=== PATIENT | female | born 1945 | race Caucasian/White ===

== ENCOUNTER 2016-09-21 10:05 | Inpatient (IN) | payer OTHER, MEDICARE ==
[~2016-09-21] VITALS: Ht 162.6 cm; Wt 62.4 kg
[2016-09-21] MEDS ORDERED: LOSA1TAB PO (10:25)
[2016-09-21] MEDS ORDERED: ASPI-461 PO (10:25)
[2016-09-21] MEDS ORDERED: LUTE15CA PO (10:25)
[2016-09-21] MEDS ORDERED: ALPR1TAB3 PO (10:25)
[2016-09-21] MEDS ORDERED: AMLO-114 PO (10:25)
[2016-09-21] MEDS ORDERED: WHEACHW PO (10:25)
[2016-09-21] MEDS ORDERED: SPRIN/30 INH (10:25)
[2016-09-21] MEDS ORDERED: MECL1TAB42 PO (10:25)
[2016-09-21] MEDS ORDERED: ALBUTEROL 0.083% NEBU SOLN 3 ML VIAL INH STA ×2 (10:26→12:44)
[2016-09-21] MEDS ORDERED: LEVAQUIN 750MG / 150ML D5W IV STA (10:27)
[2016-09-21] MEDS ORDERED: METHYLPREDNISOLONE 125 MG VIAL IV STA (10:27)
[2016-09-21 11:00] LABS: HEMATOCRIT 41.8 % (37-47); MEAN CELL VOLUME 86.4 fL (80-100); MEAN CORPUSCULAR HEMOGLOBIN 28.7 pg (25-34); MEAN CORPUSCULAR HGB CONC 33.3 g/dl (32-36); MEAN PLATELET VOLUME 10.6 fL (7.4-10.4); PLATELET COUNT 327 K/uL (130-400); RED BLOOD COUNT 4.84 M/uL (4.2-5.4); WHITE BLOOD COUNT 7.17 K/uL (4.8-10.8)
--- NOTE | 2016-09-21 11:20 | DIAGNOSTIC IMAGING REPORT ---
CHEST ONE VIEW PORTABLE HISTORY: Cough. Short of breath. COMPARISON: None. FINDINGS: The heart is normal in size. Linear density at the lung bases favor scarring or subsegmental atelectasis. No focal lung consolidations to suggest pneumonia. No evidence for pulmonary edema. Mild bibasilar interstitial thickening is likely chronic. There is a vascular stent superior to the aortic arch. There is suture material and surgical clips within the right upper lobe. There is associated volume loss within the right hemithorax with mild elevation of the right hemidiaphragm. This suggests postoperative change/prior right lobe resection. No pleural effusions. No pneumothorax. IMPRESSION: No acute process within the chest. Postoperative and chronic changes as described above. Electronically signed by: Christiano Lee M.D. 09/21/2016 11:18 AM
[2016-09-21 11:29] LABS: BUN/CREATININE RATIO 13.2 (10-20); CALCIUM 8.9 mg/dl (8.5-10.1); CREATININE 1.1 mg/dl (0.60-1.20); POTASSIUM 3.7 mmol/L (3.5-5.1)
[2016-09-21 11:32] LABS: ALB/GLOB RATIO 0.9 (0.9-2)
[2016-09-21 11:33] LABS: BASO % 0.1 %; BASO ABS # 0.01 K/uL (0-0.2); COMPLETE YES; EOS % 0.1 %; IG% 0.3 %; LYMPH % 25.2 %; LYMPH ABS # 1.81 K/uL (1.2-3.4); MONO % 12.1 %; NEUT % 62.2 %
[2016-09-21] MEDS ORDERED: OSELTAMIVIR PHOSPHATE 75 MG CAP PO SCH (12:45)
--- NOTE | 2016-09-21 13:40 | History and Physical ---
History & Physical Date & Time of Service: Sep 21, 2016 at 13:16 Chief Complaint: Cough, Runny Nose, Headache, Shortness Of Breath Primary Care Physician: No Doctor, Assigned Social History Smoking Status: Never Smoker Allergies Coded Allergies: Amoxicillin (Unverified Allergy, Unknown, hives , 09/21/16) CI Pigment Blue 63 (Unverified Allergy, Unknown, pain in right side of stomach , 09/21/16) Ciprofloxacin (Unverified Allergy, Unknown, vertigo, 09/21/16) Famotidine (Unverified Allergy, Unknown, pain in right side of stomach , 09/21/16) Ibuprofen (Unverified Allergy, Unknown, pain in right side of stomach , ) Methylprednisolone (Unverified Allergy, Unknown, increase in cholestoral, 09/21/16) Mometasone (Unverified Allergy, Unknown, eye trouble , 09/21/16) Nitrofurantoin (Unverified Allergy, Unknown, vertigo, 09/21/16) Penicillins (Unverified Allergy, Unknown, hives , 09/21/16) Meloxicam (Unverified Adverse Reaction, Unknown, dizzy , 09/21/16) Tramadol (Unverified Adverse Reaction, Unknown, dizzy, 09/21/16) Home Medications Scheduled Alprazolam (Xanax), 2 MG PO DAILY Amlodipine (Norvasc), 10 MG PO DAILY Aspirin (Aspirin), 81 MG PO DAILY Losartan Potassium (Cozaar), 25 MG PO DAILY Lutein-Zeaxanthin (Lutein), 45 MG PO DAILY Tiotropium [place] (Spiriva Handihaler), 1 CAP INH DAILY Wheat Dextrin (Benefiber), 1 TAB PO DAILY Scheduled PRN Meclizine Hcl (Meclizine Hcl), Unknown Dose PO UD PRN for prn Physical Exam Vital Signs Date Time Temp Pulse Resp B/P Pulse Ox O2 Delivery O2 Flow Rate FiO2 09/21/16 12:43 86 Room Air 09/21/16 12:28 65 18 143/51 93 Room Air 09/21/16 11:03 66 09/21/16 10:34 94 Nasal Cannula 2.0 09/21/16 10:14 94 Nasal Cannula 2.0 09/21/16 10:08 36.8 83 20 164/64 88 Room Air Diagnostics Laboratory Results Results Past 24 Hours Test 09/21/16 10:35 09/21/16 10:47 Range/Units Influenza Type A Antigen Neg for Influ A NEG Influenza Type B Antigen Neg for Influ B NEG White Blood Count 7.17 4.8-10.8 K/uL Red Blood Count 4.84 4.2-5.4 M/uL Hemoglobin 13.9 12.0-16.0 g/dL Hematocrit 41.8 37-47 % Mean Corpuscular Volume 86.4 80-100 fL Mean Corpuscular Hemoglobin 28.7 25-34 pg Mean Corpuscular Hemoglobin Concent 33.3 32-36 g/dl Platelet Count 327 130-400 K/uL Mean Platelet Volume 10.6 7.4-10.4 fL Neutrophils (%) (Auto) 62.2 % Lymphocytes (%) (Auto) 25.2 % Monocytes (%) (Auto) 12.1 % Eosinophils (%) (Auto) 0.1 % Basophils (%) (Auto) 0.1 % Neutrophils # (Auto) 4.45 1.4-6.5 K/uL Lymphocytes # (Auto) 1.81 1.2-3.4 K/uL Monocytes # (Auto) 0.87 0.11-0.59 K/uL Eosinophils # (Auto) 0.01 0-0.5 K/uL Basophils # (Auto) 0.01 0-0.2 K/uL RDW Standard Deviation 47.0 36.4-46.3 fL RDW Coefficient of Variation 14.8 11.5-14.5 % Immature Granulocyte % (Auto) 0.3 % Immature Granulocyte # (Auto) 0.02 0.00-0.02 K/uL D-Dimer 350 0-500 ug/L FEU Sodium Level 142 136-145 mmol/L Potassium Level 3.7 3.5-5.1 mmol/L Chloride Level 107 98-107 mmol/L Carbon Dioxide Level 24 21-32 mmol/L Anion Gap 11.0 3-11 mmol/L Blood Urea Nitrogen 14 7-18 mg/dl Creatinine 1.10 0.60-1.20 mg/dl Est Creatinine Clear Calc Drug Dose 39.4 ml/min Estimated GFR () 57.7 Estimated GFR (Non- 49.8 BUN/Creatinine Ratio 13.2 10-20 Random Glucose 104 70-99 mg/dl Calcium Level 8.9 8.5-10.1 mg/dl Total Bilirubin 0.8 0.2-1 mg/dl Aspartate Amino Transf (AST/SGOT) 30 15-37 U/L Alanine Aminotransferase (ALT/SGPT) 34 12-78 U/L Alkaline Phosphatase 121 45-117 U/L Total Protein 8.1 6.4-8.2 gm/dl Albumin 3.8 3.4-5.0 gm/dl Globulin 4.3 2.5-4.0 gm/dl Albumin/Globulin Ratio 0.9 0.9-2 Impression Assessment and Plan admit #[id number]
[2016-09-21] MEDS ORDERED: ALUMINUM/MAGNESIUM/SIMETH (MAALOX MAX) 30 ML UDC PO PRN (13:45)
[2016-09-21] MEDS ORDERED: MECLIZINE HCL 25 MG TAB PO PRN (13:45)
[2016-09-21] MEDS ORDERED: POLYETHYLENE (MIRALAX) 17 GM PACK PO PRN (13:45)
[2016-09-21] MEDS ORDERED: ONDANSETRON INJ 2 MG/ML 2 ML VIAL IV PRN (13:45)
[2016-09-21] MEDS ORDERED: MAGNESIUM HYDROXIDE SUSP 30 ML UDC PO PRN (13:45)
[2016-09-21] MEDS ORDERED: ACETAMINOPHEN 325 MG TAB PO PRN (13:45)
[2016-09-21 15:37] VITALS: BP 154/62; PULSE 75; TEMP 37.4; O2SAT 94; Ht 162.6 cm; Wt 62.4 kg
[2016-09-21 15:37] LABS: URINE APPEARANCE CLEAR (CLEAR); URINE BILIRUBIN NEG (NEG); URINE COLOR YELLOW; URINE NITRITE NEG (NEG); URINE SPECIFIC GRAVITY 1.001 (1.000-1.030); UROBILINOGEN NEG (NEG)
[2016-09-21 15:40] LABS: MANUAL MICROSCOPIC REQUIRED? NO; REVIEW REQ? NO
[2016-09-21] MEDS: ALBUT/IPRATROP 3MG/0.5MG NEB 3 ML VIAL INH SCH ×2 (16:00→20:22)
--- NOTE | 2016-09-21 16:29 | HISTORY & PHYSICAL EXAMINATION ---
DATE OF ADMISSION: 09/21/2016 ADMISSION HISTORY AND PHYSICAL CHIEF COMPLAINT: Cough and hypoxia. HISTORY OF PRESENT ILLNESS: The patient is a very pleasant 71-year-old female who is up here visiting family. She and her normally lives in [place], they were actually going to leave couple of days ago, but he started getting sick with something that appeared to be flu-like, turned out he had flu and then about 2 to maybe 3 days ago she started with cough and postnasal drip and just generally feeling run down, malaise, surprisingly not a lot of shortness of breath, although she did feel some shortness of breath and she did not have any fevers, but came here to the ER for further evaluation. She and her were evaluated together, he was flu B be positive and needed to be admitted. Although her flu swab was negative, has not been sick quite as long, but was found to be fairly hypoxic down as low as 86% on room air and because of this, we were asked to evaluate her for admission as well. REVIEW OF SYSTEMS: Negative for any GI symptoms. She has no nausea, vomiting, abdominal pain. She has no other new problems besides the above. She notes that at baseline, her pulse ox runs about 96-98% on room air and review of systems is otherwise negative, except for as above. PAST MEDICAL HISTORY: Includes COPD, hypertension, coronary artery disease and lung cancer status post resection. MEDICATIONS: Xanax 2 mg daily, Norvasc 10 mg daily, aspirin 81 mg daily, Cozaar 25 mg daily, Lutein 45 mg daily, Spiriva 1 puff daily and Benefiber daily. She also takes meclizine, uncertain dose, assumed to be 25 mg p.r.n. vertigo. PAST SURGICAL HISTORY: Includes cath and stenting, carotid endarterectomy, lung cancer resection. SOCIAL HISTORY: She is a former smoker, she quit whenever she found out she had lung cancer, she has not smoked since. FAMILY HISTORY: Includes hypertension. ALLERGIES: AMOXICILLIN, PIGMENT BLUE 63, CIPRO, PEPCID, IBUPROFEN, METHYLPREDNISOLONE, MOMETASONE, NITROFURANTOIN, PENICILLINS, MELOXICAM, AND TRAMADOL. PHYSICAL EXAMINATION: VITAL SIGNS: Temperature 36.8, pulse 83, respiratory rate 20, blood pressure 164/64; 88% down to 86% on room air, but she is high 90s on 1-2 liters. GENERAL: She is awake, alert, oriented x3, pleasant, in no acute distress. HEENT: Normocephalic, atraumatic. Mucous membranes are moist. CARDIOVASCULAR: Regular without rubs, murmurs, or gallops. LUNGS: Surprisingly clear, slightly diminished air entry globally but no rales, rhonchi, or wheezes. Good effort. ABDOMEN: Soft, nondistended, nontender, no masses or organomegaly. EXTREMITIES: Without cyanosis, clubbing or edema. No calf tenderness. SKIN: Shows no rashes, no pallor or icterus. NEUROLOGIC: Shows cranial nerves II-XII grossly intact. Gross motor and sensory are intact. MUSCULOSKELETAL: Yields no gross lesions. MENTAL STATUS: Good recent and remote recall. Normal mood and affect. Good judgment and insight. LABORATORIES AND DIAGNOSTICS: CBC shows a white count of 7.17, hemoglobin 13.9, platelets 327. Complete metabolic panel with sodium 142, potassium 3.7, chloride 107, CO2 24, BUN 14, creatinine 1.1, calcium 8.9, glucose 104, total bili 0.8 with an AST of 30, ALT 34, alkaline phosphatase 121, total protein 8.1, albumin 3.8. D-dimer of 350. Flu swabs were negative. Chest x-ray was clear with an elevated right hemidiaphragm and postoperative changes but no infiltrate. EKG was sinus rhythm without any ischemic changes. ASSESSMENT AND PLAN: 1. Acute hypoxic respiratory failure. This appears to be due to flu, and in spite of claiming a history of at least moderate chronic obstructive pulmonary disease, maybe bordering on severe. She looks remarkably good for having had the flu. She is not really wheezing and given her prior adverse reaction to steroids, will try to hold off on corticosteroids if at all possible. Would utilize DuoNebs q.i.d. and q. 2 hours p.r.n. shortness of breath or wheeze and supportive care as well as supplemental oxygen weaning down if possible. I suspect as her flu improves, she will be better. 2. Influenza B. Given that her had flu B and she has almost identical symptoms, I am almost certain this is a false negative flu swab. We discussed the risks and benefits of impaired treatment versus reswabbing tomorrow and she and I and the daughter all agreed empiric treatment makes no sense, we utilized Tamiflu 75 mg b.i.d. 3. Moderate bordering on severe chronic obstructive pulmonary disease. Continue her Spiriva. She appears to be very surprisingly asymptomatic on a normal day. 4. Hypertension. Continue her home meds. 5. Coronary artery disease. Continue home meds. She appears to be asymptomatic. 6. Deep venous thrombosis prophylaxis. Ambulation should her stay become prolonged at all, will certainly need to initiate Lovenox. EMILIANO
--- NOTE | 2016-09-21 17:05 | EMERGENCY ROOM VISIT NOTE ---
History Report prepared by Jam: Mary Smith Under the Supervision of: Dr. Gianni Robertson D.O. First contact with patient: 10:16 Chief Complaint: FLU LIKE SX Stated Complaint: COUGH, RUNNY NOSE, HEADACHE, SHORTNESS OF BREATH History of Present Illness The patient is a 71 year old female who presents to the Emergency Room with complaints of worsening illness that started 2-3 days ago. The patient states that her is sick with similar symptoms and she started getting symptoms a couple days after he did. The patient is experiencing a productive cough with yellow sputum along with shortness of breath. She denies hemoptysis, chest pain , nausea, vomiting, abdominal, pain, and lower extremity edema. She has a history of lung cancer and COPD but denies any history of blood clots. She adds that she has two stents in her heart. She denies recent antibiotic or steroid use. The patient is visiting family in the area and she traveled here from [place] a couple days before [place]. Source of History: patient Onset: 2-3 days ago Position: other (generalized) Quality: other (illness) Timing: worsening Associated Symptoms: + SOB, + cough (productive with yellow sputum), No abdominal pain, No chest pain, No nausea, No vomiting Note: no hemoptysis, no lower extremity edema. Review of Systems See HPI for pertinent positives & negatives. A total of 10 systems reviewed and were otherwise negative. Past Medical & Surgical Medical Problems: (1) Hypertension (2) Hypoxia (3) Influenza B (4) Lung cancer Surgical Problems: (1) History of cholecystectomy Family History FH: cancer FH: gallbladder disease FH: lung disease Hypertension Social History Smoking Status: Never Smoker Marital Status: Housing Status: lives with family Current/Historical Medications Scheduled Alprazolam (Xanax), 2 MG PO DAILY Amlodipine (Norvasc), 10 MG PO DAILY Aspirin (Aspirin), 81 MG PO DAILY Losartan Potassium (Cozaar), 25 MG PO DAILY Lutein-Zeaxanthin (Lutein), 45 MG PO DAILY Tiotropium [place] (Spiriva Handihaler), 1 CAP INH DAILY Wheat Dextrin (Benefiber), 1 TAB PO DAILY Scheduled PRN Meclizine Hcl (Meclizine Hcl), Unknown Dose PO UD PRN for prn Allergies Coded Allergies: Amoxicillin (Unverified Allergy, Unknown, hives , 09/21/16) CI Pigment Blue 63 (Unverified Allergy, Unknown, pain in right side of stomach , 09/21/16) Ciprofloxacin (Unverified Allergy, Unknown, vertigo, 09/21/16) Famotidine (Unverified Allergy, Unknown, pain in right side of stomach , 09/21/16) Ibuprofen (Unverified Allergy, Unknown, pain in right side of stomach , ) Methylprednisolone (Unverified Allergy, Unknown, increase in cholestoral, 09/21/16) Mometasone (Unverified Allergy, Unknown, eye trouble , 09/21/16) Nitrofurantoin (Unverified Allergy, Unknown, vertigo, 09/21/16) Penicillins (Unverified Allergy, Unknown, hives , 09/21/16) Meloxicam (Unverified Adverse Reaction, Unknown, dizzy , 09/21/16) Tramadol (Unverified Adverse Reaction, Unknown, dizzy, 09/21/16) Physical Exam Vital Signs Date Time Temp Pulse Resp B/P Pulse Ox O2 Delivery O2 Flow Rate FiO2 09/21/16 13:19 70 09/21/16 12:43 86 Room Air 09/21/16 12:28 65 18 143/51 93 Room Air 09/21/16 11:03 66 09/21/16 10:34 94 Nasal Cannula 2.0 09/21/16 10:14 94 Nasal Cannula 2.0 09/21/16 10:08 36.8 83 20 164/64 88 Room Air Physical Exam GENERAL: alert, sitting up in bed, congested, talking in full sentences, well appearing, well nourished, no acute distress, non-toxic EYE EXAM: normal conjunctiva OROPHARYNX: no exudate, no erythema, lips, buccal mucosa, and tongue normal and mucous membranes are moist NECK: supple, no nuchal rigidity, no adenopathy, non-tender LUNGS: Coarse at the bases. Normal chest wall mechanics HEART: no murmurs, S1 normal and S2 normal ABDOMEN: abdomen soft, non-tender, normo-active bowel sounds, no masses, no rebound or guarding. BACK: Back is symmetrical on inspection and there is no deformity, no midline tenderness, no CVA tenderness. SKIN: no rashes and no bruising UPPER EXTREMITIES: upper extremities are grossly normal. LOWER EXTREMITIES: No pitting edema. Calves equal bilaterally. NEURO EXAM: Normal sensorium, cranial nerves II-XII grossly intact, normal speech, no gross weakness of arms, no gross weakness of legs. Medical Decision & Procedures ER Provider Diagnostic Interpretation: Xray results per the radiologist and my interpretation. CHEST ONE VIEW PORTABLE HISTORY: Cough. Short of breath. COMPARISON: None. FINDINGS: The heart is normal in size. Linear density at the lung bases favor scarring or subsegmental atelectasis. No focal lung consolidations to suggest pneumonia. No evidence for pulmonary edema. Mild bibasilar interstitial thickening is likely chronic. There is a vascular stent superior to the aortic arch. There is suture material and surgical clips within the right upper lobe. There is associated volume loss within the right hemithorax with mild elevation of the right hemidiaphragm. This suggests postoperative change/prior right lobe resection. No pleural effusions. No pneumothorax. IMPRESSION: No acute process within the chest. Postoperative and chronic changes as described above. Electronically signed by: Christiano Lee M.D. 09/21/2016 11:18 AM Laboratory Results 09/21/16 10:47 Red Blood Count 4.84, Mean Corpuscular Volume 86.4, Mean Corpuscular Hemoglobin 28.7, Mean Corpuscular Hemoglobin Concent 33.3, Mean Platelet Volume 10.6, Neutrophils (%) (Auto) 62.2, Lymphocytes (%) (Auto) 25.2, Monocytes (%) (Auto) 12.1, Eosinophils (%) (Auto) 0.1, Basophils (%) (Auto) 0.1, Neutrophils # (Auto ) 4.45, Lymphocytes # (Auto) 1.81, Monocytes # (Auto) 0.87, Eosinophils # (Auto ) 0.01, Basophils # (Auto) 0.01 09/21/16 10:47 Test 09/21/16 10:35 09/21/16 10:47 Influenza Type A Antigen Neg for Influ A (NEG) Influenza Type B Antigen Neg for Influ B (NEG) White Blood Count 7.17 K/uL (4.8-10.8) Red Blood Count 4.84 M/uL (4.2-5.4) Hemoglobin 13.9 g/dL (12.0-16.0) Hematocrit 41.8 % (37-47) Mean Corpuscular Volume 86.4 fL (80-100) Mean Corpuscular Hemoglobin 28.7 pg (25-34) Mean Corpuscular Hemoglobin Concent 33.3 g/dl (32-36) Platelet Count 327 K/uL (130-400) Mean Platelet Volume 10.6 fL (7.4-10.4) Neutrophils (%) (Auto) 62.2 % Lymphocytes (%) (Auto) 25.2 % Monocytes (%) (Auto) 12.1 % Eosinophils (%) (Auto) 0.1 % Basophils (%) (Auto) 0.1 % Neutrophils # (Auto) 4.45 K/uL (1.4-6.5) Lymphocytes # (Auto) 1.81 K/uL (1.2-3.4) Monocytes # (Auto) 0.87 K/uL (0.11-0.59) Eosinophils # (Auto) 0.01 K/uL (0-0.5) Basophils # (Auto) 0.01 K/uL (0-0.2) RDW Standard Deviation 47.0 fL (36.4-46.3) RDW Coefficient of Variation 14.8 % (11.5-14.5) Immature Granulocyte % (Auto) 0.3 % Immature Granulocyte # (Auto) 0.02 K/uL (0.00-0.02) D-Dimer 350 ug/L FEU (0-500) Anion Gap 11.0 mmol/L (3-11) Est Creatinine Clear Calc Drug Dose 39.4 ml/min Estimated GFR () 57.7 Estimated GFR (Non- 49.8 BUN/Creatinine Ratio 13.2 (10-20) Calcium Level 8.9 mg/dl (8.5-10.1) Total Bilirubin 0.8 mg/dl (0.2-1) Aspartate Amino Transf (AST/SGOT) 30 U/L (15-37) Alanine Aminotransferase (ALT/SGPT) 34 U/L (12-78) Alkaline Phosphatase 121 U/L (45-117) Total Protein 8.1 gm/dl (6.4-8.2) Albumin 3.8 gm/dl (3.4-5.0) Globulin 4.3 gm/dl (2.5-4.0) Albumin/Globulin Ratio 0.9 (0.9-2) Laboratory results per my review. Medications Administered Medications (Trade) Dose Ordered Sig/King Route Start Time Stop Time Status Last Admin Dose Admin Albuterol Sulfate (Ventolin 0.083% 2.5MG/3ML Neb) 2.5 mg NOW STAT INH 09/21/16 10:26 09/21/16 10:27 DC 09/21/16 11:00 2.5 MG Oseltamivir Phosphate (Tamiflu Cap) 75 mg NOW PO 09/21/16 12:45 09/21/16 14:28 DC 09/21/16 14:16 75 MG Albuterol Sulfate (Ventolin 0.083% 2.5MG/3ML Neb) 2.5 mg NOW STAT INH 09/21/16 12:44 09/21/16 12:45 DC 09/21/16 14:16 2.5 MG ECG Indication: SOB/dyspnea Rate (beats per minute): 65 Rhythm: sinus rhythm Findings: Q waves (Septal), other (normal axis) ED Course ED COURSE: Vital signs were reviewed and showed hypoxia. The patients medical record was reviewed The above diagnostic studies were performed and reviewed. ED treatments and interventions as stated above. 1021: The patient was evaluated in room A4. A complete history and physical examination was performed. 1026: Ordered Albuterol Sulfate 2.5 mg INH 1105: The patient is now in room A12A. She refuses to take any steroids because she states that they increase her cholesterol. 1129: I reassessed and updated the patient and her . 1235: I reassessed the patient. She is resting comfortably. 1241: The patient's nurse informed me that her pulse ox goes down to 85-86% when she ambulates. 1242: Upon reevaluation, the patient is resting comfortably. I discussed my findings with the patient and she understands and agrees with the treatment plan. Based on the patients age, coexisting illnesses, exam and lab findings the decision to treat as an inpatient was made. The patient remained stable while under my care. The patient will be evaluated for further management. 1244: Ordered Albuterol Sulfate 2.5 mg INH 1245: Ordered Tamiflu Cap 75 mg PO 1247: I reviewed the patient's case with Dr. Ludin Cisneros [facility]. He will evaluate the patient for further management. Medical Decision Differential diagnoses includes but is not limited to pneumonia, bronchitis, COPD/Asthma exacerbation, pneumothorax, pulmonary embolism, congestive heart failure, acute coronary syndrome Patient is a 71-year-old female who presents the ER his was recently admitted with influenza for cough and shortness of breath. Labs show no significant a leukocytosis or anemia. BMP along with LFTs, bilirubin is unremarkable. D-dimer was negative. UA was negative. Influenza A and B were negative. Patient does have COPD and was ambulate with a pulse ox of 86. She is requiring nasal cannula. With her having the same symptoms I treat her with Tamiflu. She declined steroids. She is admitted following 2 neb treatments for COPD exacerbation likely secondary to the flu. Consults Time Called: 1239 Consulting Physician: Dr. Ludin MAXWELL Returned Call: [phone] I reviewed the patient's case with Dr. Ludin MAXWELL. He will evaluate the patient for further management. Impression Primary Impression: COPD exacerbation Additional Impression: Viral URI Scribe Attestation The scribe's documentation has been prepared under my direction and personally reviewed by me in its entirety. I confirm that the note above accurately reflects all work, treatment, procedures, and medical decision making performed by me. Departure Information Dispostion Being Evaluated By Hospitalist Patient Instructions A Signature Page, My [facility]
[2016-09-21 20:15] VITALS: PULSE 80; O2SAT 96
[2016-09-21] MEDS: OSELTAMIVIR PHOSPHATE SUSP 30 MG/5 ML UDP PO SCH (21:32)
[2016-09-22] VITALS (12 sets, daily range): BP systolic 126–132; BP diastolic 58–64; PULSE 62–86; TEMP 36.5–36.8; O2SAT 86–98
[2016-09-22] MEDS: ALBUT/IPRATROP 3MG/0.5MG NEB 3 ML VIAL INH SCH ×4 (07:00→20:17)
[2016-09-22] MEDS: TIOTROPIUM BROMIDE 5 PUFF/90 MCG INH INH SCH (08:07)
[2016-09-22] MEDS: ASPIRIN 81 MG ECTAB PO SCH (08:07)
[2016-09-22] MEDS: LOSARTAN POTASSIUM 25 MG TAB PO SCH (08:08)
[2016-09-22] MEDS: AMLODIPINE BESYLATE 5 MG TAB PO SCH (08:08)
[2016-09-22] MEDS: OSELTAMIVIR PHOSPHATE SUSP 30 MG/5 ML UDP PO SCH ×2 (08:37→21:04)
[2016-09-22] MEDS: ALPRAZOLAM 0.5 MG TAB PO SCH ×3 (08:37→21:05)
[2016-09-22] MEDS ORDERED: WHEAT DEXTRIN PO SCH (09:00)
[2016-09-22] MEDS ORDERED: ZEAXANTHIN PO SCH (09:00)
[2016-09-22] MEDS ORDERED: LUTEIN PO SCH (09:00)
[2016-09-22] MEDS ORDERED: NURSING VERBAL MED ORDER ONE ×2 (15:00→16:30)
[2016-09-22] MEDS ORDERED: COUGH DROP (SUGAR FREE) LOZ 24 LOZ/1 BOX PO PRN (15:15)
--- NOTE | 2016-09-22 18:27 | Progress Note ---
Subjective Date of Service: Sep 22, 2016. Subjective Pt evaluation today including: conversation w/ patient, physical exam, chart review, review of inpatient medication list feeling ok cough (+) no sob on O2 no f/c/s still perseverates on that she doesn't need O2 at home and her pulse ox typically runs high 90's at home Problem List Medical Problems: (1) COPD exacerbation Status: Acute (2) Hypertension Status: Chronic (3) Viral URI Status: Acute Surgical Problems: (1) History of cholecystectomy Status: Chronic Review of Systems Constitutional: No chills, No fever, No sweats Respiratory: + cough, + shortness of breath ros otherwise negative except for as above Objective Vital Signs Date Time Temp Pulse Resp B/P Pulse Ox O2 Delivery O2 Flow Rate FiO2 09/22/16 16:08 94 Nasal Cannula 1.0 09/22/16 16:05 36.5 86 20 126/58 90 Room Air 09/22/16 15:34 82 18 95 Room Air 09/22/16 11:35 82 18 93 Room Air 09/22/16 10:29 86 Room Air 09/22/16 10:10 90 Room Air 09/22/16 08:00 Nasal Cannula 2.0 09/22/16 07:32 36.8 62 18 132/63 95 2.0 09/22/16 07:00 79 18 98 Nasal Cannula 2.0 09/22/16 00:23 36.8 64 18 130/60 95 Nasal Cannula 2.0 09/22/16 00:00 Nasal Cannula 2.0 09/21/16 20:15 80 18 96 Nasal Cannula 2.0 Physical Exam General Appearance: no apparent distress Eyes: EOMI ENT: hearing grossly normal Neck: trachea midline Respiratory/Chest: no respiratory distress, no accessory muscle use, + rales ( scattered L sided, mostly base, otherwise clear - good air entry no r/r/w good effort) Cardiovascular: regular rate, rhythm Neurologic/Psychiatric: actuarial associate II-XII nml as tested, alert, normal mood/affect Skin: normal color, warm/dry Assessment and Plan 1. Acute hypoxic respiratory failure. This appears to be due to flu, and in spite of claiming a history of at least moderate chronic obstructive pulmonary disease, maybe bordering on severe, she looks surprisingly stable -unfortunately despite trying twice through the day to wean O2, she's still dropping into mid to low 80's on room air with ambulation -continue tamiflu, nebs -she would prefer to avoid steroids, since not wheezing, OK to hold off for now 2. Influenza B. Given that her had flu B and she has almost identical symptoms, I am almost certain this is a false negative flu swab. We discussed the risks and benefits of impaired treatment versus reswabbing tomorrow and she and I and the daughter all agreed empiric treatment makes more sense, continue tamiflu renally dosed 3. Moderate bordering on severe chronic obstructive pulmonary disease. Continue her Spiriva. She appears to be very surprisingly asymptomatic on a normal day. continue nebs as well 4. Hypertension. Continue her home meds. 5. Coronary artery disease. Continue home meds. She appears to be asymptomatic. 6. Deep venous thrombosis prophylaxis. lovenox
[2016-09-22 19:39] LABS: INR 0.9 (0.9-1.1); PROTHROMBIN TIME (PATIENT) 10.1 SECONDS (9.0-12.0)
[2016-09-23 07:20] VITALS: PULSE 59; O2SAT 93
[2016-09-23] MEDS: ALBUT/IPRATROP 3MG/0.5MG NEB 3 ML VIAL INH SCH (07:21)
[2016-09-23 07:57] VITALS: BP 141/65; PULSE 59; TEMP 36.5; O2SAT 91
[2016-09-23] MEDS: AMLODIPINE BESYLATE 5 MG TAB PO SCH (08:13)
[2016-09-23] MEDS: ASPIRIN 81 MG ECTAB PO SCH (08:13)
[2016-09-23] MEDS: ALPRAZOLAM 0.5 MG TAB PO SCH (08:13)
[2016-09-23] MEDS: LOSARTAN POTASSIUM 25 MG TAB PO SCH (08:14)
[2016-09-23] MEDS: TIOTROPIUM BROMIDE 5 PUFF/90 MCG INH INH SCH (08:14)
[2016-09-23 08:15] VITALS: O2SAT 94
[2016-09-23] MEDS: OSELTAMIVIR PHOSPHATE SUSP 30 MG/5 ML UDP PO SCH ×2 (08:20→17:04)
[2016-09-23] MEDS ORDERED: ENOXAPARIN 40 MG/0.4 ML SYR SQ SCH (09:00)
[2016-09-23] MEDS: IPRATROPIUM BROMIDE/ALBUTEROL respimat INH INH SCH ×2 (12:50→15:40)
[2016-09-23] MEDS ORDERED: GUAIFENESIN 600 MG TABCR PO SCH (13:00)
--- NOTE | 2016-09-23 14:06 | DIAGNOSTIC IMAGING REPORT ---
TWO VIEW CHEST CLINICAL HISTORY: Cough. Dyspnea. Hypoxia. FINDINGS: PA and lateral chest radiographs are compared to study dated 09/21/2016. The heart is normal for projection. There is atherosclerotic calcification of the thoracic aorta. The pulmonary vasculature is noncongested. Enlargement of the main pulmonary arteries suggests pulmonary artery hypertension. Emphysema is suspected and there is chronic appearing interstitial thickening. Postoperative changes are consistent with a history of right-sided pulmonary resection and there is associated elevation of the right hemidiaphragm. Suture material is noted at the right apex. No airspace consolidation is seen typical for pneumonia. No large pleural effusion is identified. There is no pneumothorax. The skeletal structures are osteopenic. The bony thorax appears intact. Cholecystectomy clips are identified in the right upper quadrant. IMPRESSION: 1. No acute cardiopulmonary abnormality is seen. 2. Findings suggest emphysema and there is evidence of previous right-sided pulmonary resection. Correlation with the patient's surgical and oncological history will be required. Electronically signed by: Akhil Oviedo M.D. 09/23/2016 2:04 PM
[2016-09-23 15:43] VITALS: BP 134/66; PULSE 63; TEMP 36.4; O2SAT 96
[2016-09-23 15:45] VITALS: O2SAT 96
[2016-09-23] MEDS ORDERED: PRD20 PO (17:03)
[2016-09-23] MEDS ORDERED: ALPR1TAB3 PO (17:03)
[2016-09-23] MEDS ORDERED: GFNSR600 PO (17:03)
[2016-09-23] MEDS ORDERED: NF406 PO (17:03)
[2016-09-23] MEDS ORDERED: IPRA1AER2 INH (17:03)
--- NOTE | 2016-09-23 17:11 | Discharge Instructions ---
Discharge Instructions Admission Reason for Admission: Suspected Influenza type B Infection Discharge Discharge Diagnosis / Problem: 1. suspected Influenza infection 2. laryngitis 3. mild bronchitis Discharge Goals Goal(s): Learn about illness, Diagnostic testing, Therapeutic intervention Activity Recommendations Activity Limitations: resume your previous activity (but take it easy over the next few days (no heavy exertional activity, no going to the gym, etc)) . Instructions / Follow-Up Instructions / Follow-Up From Dr. Yuan - 1. For your suspected influenza - * take tamiflu for 5 more doses; take the first dose TOMORROW AM on 09/24/16; prescription provided * plenty of fluids for the next few days 2. For your laryngitis / bronchitis - * take mucinex [id number] up to 1200mg every 12 hours as needed for cough , congestion * take combivent respimat inhaler, 1 puff every 6 hours scheduled for the next 5 -7 days; after that you can use this inhaler as needed * do not take prohair WITH the combivent; use one or the other * take prednisone 40mg once daily for 5 days; take with food; start TOMORROW AM 09/24/16; new prescription provided 3. For your COPD - * continue your spiriva as previous * use the mucinex and combivent as mentioned above 4. For your medical records call [phone] and ask to speak to the medical records department 5. Return to [facility] if you experience fever of 100.5 or greater, worsening cough, worsening shortness of breath, worsening blood in the spit, etc. It is not uncommon to have an occasional streak of blood in the spit with laryngitis and/or bronchitis. If it persists or worsens, however, this is NOT normal and you will need to get immediate medical attention. 6. Please see your family doctor upon return to your hometown. Ideally you should be seen THIS WEEK. I agree with your decision to NOT travel for another 2-3 days. Take frequent stops and breaks during your upcoming travel. Current Hospital Diet Patient's current hospital diet: Regular Diet Discharge Diet Recommended Diet: Regular Diet Procedures Procedures Performed: chest x-ray -- no evidence of pneumonia. Emphysema. Pending Studies Studies pending at discharge: no Medical Emergencies . Who to Call and When: Medical Emergencies: If at any time you feel your situation is an emergency, please call 911 immediately. . Non-Emergent Contact Non-Emergency issues call your: Primary Care Provider Call Non-Emergent contact if: temperature is above 100.5, you have any medication questions . . "Provider Documentation" section prepared by Claudio Yuan. VTE Core Measure Inpt VTE Proph given/why not?: Enoxaparin (Lovenox)SQ
[2016-09-23 17:16] VITALS: BP 134/66; PULSE 63; TEMP 36.4; O2SAT 96
--- NOTE | 2016-09-24 07:52 | Discharge Summary ---
Discharge Summary Admission Date: Sep 21, 2016 at 13:44 Discharge Date: Sep 23, 2016 Discharge Disposition: Home Principal Diagnosis: suspected influenza type B infection Problems/Secondary Diagnoses: 1. CAD 2. HTN 3. h/o lung cancer s/p resection 4. COPD with mild exacerbation 5. laryngitis 6. acute hypoxic respiratory failure - resolved Procedures: chest x-ray: FINDINGS: PA and lateral chest radiographs are compared to study dated 09/21/2016. The heart is normal for projection. There is atherosclerotic calcification of the thoracic aorta. The pulmonary vasculature is noncongested. Enlargement of the main pulmonary arteries suggests pulmonary artery hypertension. Emphysema is suspected and there is chronic appearing interstitial thickening. Postoperative changes are consistent with a history of right-sided pulmonary resection and there is associated elevation of the right hemidiaphragm. Suture material is noted at the right apex. No airspace consolidation is seen typical for pneumonia. No large pleural effusion is identified. There is no pneumothorax. The skeletal structures are osteopenic. The bony thorax appears intact. Cholecystectomy clips are identified in the right upper quadrant. IMPRESSION: 1. No acute cardiopulmonary abnormality is seen. 2. Findings suggest emphysema and there is evidence of previous right-sided pulmonary resection. Correlation with the patient's surgical and oncological history will be required. Medication Reconciliation New Medications: Prednisone (Prednisone) 20 Mg Tab 40 MG PO DAILY for 5 Days, #10 0 Refills start AM of 09/24/16 - take with food. Guaifenesin Ext Rel (Mucinex Ext Rel) 600 Mg Tabcr 1200 MG PO Q12 PRN for cough/congestion, #30 0 Refills Ipratropium-Albuterol (Combivent Respimat) 1 Aer Aer 1 PUFFS INH Q6H, #1 0 Refills Oseltamivir Phosphate (Tamiflu) 75 Mg Cap 1 CAP PO BID, #5 CAP 0 Refills start AM of 09/24/16 Changed Medications: Alprazolam (Xanax) 1 Mg Tab 1 MG PO BID, #30 TAB 0 Refills (Changed from: 2 MG; DAILY; Refills: ) Continued Medications: Amlodipine (Norvasc) 10 Mg Tab 10 MG PO DAILY, TAB Aspirin (Aspirin) 81 Mg Tab 81 MG PO DAILY Losartan Potassium (Cozaar) 25 Mg Tab 25 MG PO DAILY, TAB Lutein-Zeaxanthin (Lutein) 1 Cap Cap 45 MG PO DAILY Meclizine Hcl (Meclizine Hcl) 25 Mg Tab Unknown Dose PO UD PRN for prn for 10 Days, TAB Tiotropium [place] (Spiriva Handihaler) 30 Puff/540 Mcg Aerp 1 CAP INH DAILY, INHALER Wheat Dextrin (Benefiber) 1 Chw Chw 1 TAB PO DAILY Discharge Exam Physical Exam: General Appearance: WD/WN, no apparent distress ENT: pharynx normal, + muffled/hoarse voice (hoarse) Neck: no JVD Respiratory/Chest: + wheezing (end-exp, very mild ) Cardiovascular: regular rate, rhythm, no gallop, no murmur, normal peripheral pulses Abdomen / GI: normal bowel sounds, non tender, soft, no organomegaly Extremities: no pedal edema Neurologic/Psychiatric: alert, oriented x 3 Skin: no rash Hospital Course HISTORY OF PRESENT ILLNESS: The patient is a very pleasant 71-year-old female who is up here visiting family. She and her normally lives in [place], they were actually going to leave couple of days ago, but he started getting sick with something that appeared to be flu-like, turned out he had flu and then about 2 to maybe 3 days ago she started with cough and postnasal drip and just generally feeling run down, malaise, surprisingly not a lot of shortness of breath, although she did feel some shortness of breath and she did not have any fevers, but came here to the ER for further evaluation. She and her were evaluated together, he was flu B be positive and needed to be admitted. Although her flu swab was negative it was suspected that she, too, was infected with influenza. At time of ER presentation she was found to be hypoxic with O2 saturation in room air of 86%. HOSPITAL COURSE: The patient had an uneventful hospital stay marked by gradual improvement in all pulmonary symptoms. She was treated for presumptive influenza type B infection with tamiflu and completed 2.5 days of such while hospitalized. She will complete, in total, 5 days of the tamiflu. Her O2 was gradually weaned off, and her O2 sats in room air with walking were mid to high 90s at time of discharge. Chest x-ray on day of admission failed to show any complicating pneumonia. She will discharge to home on tamiflu, a short course of prednisone for laryngitis/mild COPD exacerbation, and inhalers. The patient had 1-2 episodes of scant amount of hemoptysis while here. She was counseled that bronchial irritation can certainly cause this in the setting of acute bronchitis / COPD exacerbation. She was advised that if this symptom persists or worsens she would need immediate medical attention. The patient's primary state of residence is [place] and she plans to return there in the week following discharge. It was recommended she see her PCP upon return to [place] for re-evaluation. 09/21/16 10:47 Red Blood Count 4.84, Mean Corpuscular Volume 86.4, Mean Corpuscular Hemoglobin 28.7, Mean Corpuscular Hemoglobin Concent 33.3, Mean Platelet Volume 10.6, Neutrophils (%) (Auto) 62.2, Lymphocytes (%) (Auto) 25.2, Monocytes (%) (Auto) 12.1, Eosinophils (%) (Auto) 0.1, Basophils (%) (Auto) 0.1, Neutrophils # (Auto ) 4.45, Lymphocytes # (Auto) 1.81, Monocytes # (Auto) 0.87, Eosinophils # (Auto ) 0.01, Basophils # (Auto) 0.01 09/21/16 10:47 Test 09/21/16 10:35 09/21/16 10:47 09/21/16 14:42 09/22/16 19:20 Influenza Type A Antigen Neg for Influ A (NEG) Influenza Type B Antigen Neg for Influ B (NEG) White Blood Count 7.17 K/uL (4.8-10.8) Red Blood Count 4.84 M/uL (4.2-5.4) Hemoglobin 13.9 g/dL (12.0-16.0) Hematocrit 41.8 % (37-47) Mean Corpuscular Volume 86.4 fL (80-100) Mean Corpuscular Hemoglobin 28.7 pg (25-34) Mean Corpuscular Hemoglobin Concent 33.3 g/dl (32-36) Platelet Count 327 K/uL (130-400) Mean Platelet Volume 10.6 fL (7.4-10.4) Neutrophils (%) (Auto) 62.2 % Lymphocytes (%) (Auto) 25.2 % Monocytes (%) (Auto) 12.1 % Eosinophils (%) (Auto) 0.1 % Basophils (%) (Auto) 0.1 % Neutrophils # (Auto) 4.45 K/uL (1.4-6.5) Lymphocytes # (Auto) 1.81 K/uL (1.2-3.4) Monocytes # (Auto) 0.87 K/uL (0.11-0.59) Eosinophils # (Auto) 0.01 K/uL (0-0.5) Basophils # (Auto) 0.01 K/uL (0-0.2) RDW Standard Deviation 47.0 fL (36.4-46.3) RDW Coefficient of Variation 14.8 % (11.5-14.5) Immature Granulocyte % (Auto) 0.3 % Immature Granulocyte # (Auto) 0.02 K/uL (0.00-0.02) D-Dimer 350 ug/L FEU (0-500) Anion Gap 11.0 mmol/L (3-11) Est Creatinine Clear Calc Drug Dose 39.4 ml/min Estimated GFR () 57.7 Estimated GFR (Non- 49.8 BUN/Creatinine Ratio 13.2 (10-20) Calcium Level 8.9 mg/dl (8.5-10.1) Total Bilirubin 0.8 mg/dl (0.2-1) Aspartate Amino Transf (AST/SGOT) 30 U/L (15-37) Alanine Aminotransferase (ALT/SGPT) 34 U/L (12-78) Alkaline Phosphatase 121 U/L (45-117) Total Protein 8.1 gm/dl (6.4-8.2) Albumin 3.8 gm/dl (3.4-5.0) Globulin 4.3 gm/dl (2.5-4.0) Albumin/Globulin Ratio 0.9 (0.9-2) Urine Color YELLOW Urine Appearance CLEAR (CLEAR) Urine pH 5.0 (4.5-7.5) Urine Specific [place] 1.001 (1.000-1.030) Urine Protein NEG (NEG) Urine Glucose (UA) NEG (NEG) Urine Ketones NEG (NEG) Urine Occult Blood TRACE (NEG) Urine Nitrite NEG (NEG) Urine Bilirubin NEG (NEG) Urine Urobilinogen NEG (NEG) Urine Leukocyte Esterase NEG (NEG) Urine WBC (Auto) 1-5 /hpf (0-5) Urine RBC (Auto) 0-4 /hpf (0-4) Urine Hyaline Casts (Auto) 0 /lpf (0-5) Urine Epithelial Cells (Auto) 5-10 /lpf (0-5) Urine Bacteria (Auto) NEG (NEG) Prothrombin Time 10.1 SECONDS (9.0-12.0) Prothromb Time International Ratio 0.9 (0.9-1.1) Total Time Spent: Greater than 30 minutes This includes examination of the patient, discharge planning, medication reconciliation, and communication with other providers. Discharge Instructions Please refer to the electronic Patient Visit Report (Discharge Instructions) for additional information. Follow-Up see PCP within 5 days of return to [place], the patient's primary state of residence
== END 2016-09-23 17:50 | disposition home or self-care (01) | DRG 152 ==
LOC: ENRESERVTM → ENRESERVDT → C.EDB 10:07 → UNDOADMIN 13:44 → C.MS2W 13:44 → EDBEDREQ 13:51
PROVIDERS: ADMIT Family Medicine; ATTEND Internal Medicine
DX: J11.1 Influenza due to unidentified influenza virus with other respiratory manifestations (principal); J96.01 Acute respiratory failure with hypoxia; J44.1 Chronic obstructive pulmonary disease with (acute) exacerbation; I10 Essential (primary) hypertension; I25.10 Atherosclerotic heart disease of native coronary artery without angina pectoris; Z85.118 Personal history of other malignant neoplasm of bronchus and lung; Z87.891 Personal history of nicotine dependence; Z98.61 Coronary angioplasty status; Z82.49 Family history of ischemic heart disease and other diseases of the circulatory system; Z79.82 Long term (current) use of aspirin; Z79.899 Other long term (current) drug therapy